=== PATIENT | male | born 1960 | race Caucasian/White ===

== ENCOUNTER 2016-11-22 23:17 | Emergency (ER) | payer OTHER ==
--- NOTE | 2016-11-22 23:32 | CPEKG ---
Heart Rate: 72 RR Interval: 833 P-R Interval: 140 QRSD Interval: 82 QT Interval: 396 QTC Interval: 434 P Ralston: 63 QRS Ralston: 30 T Wave Ralston: 18 EKG Severity - NORMAL ECG - EKG Impression: SINUS RHYTHM Electronically Signed By: Kaden Zavaleta 23-Nov-2016 02:15:22
[2016-11-22] MEDS ORDERED: NS 1,000 ML IV ONE (23:58)
--- NOTE | 2016-11-23 01:06 | EDPHY ---
H & P Stated Complaint: syncopal episode Time Seen by Provider: 11/22/16 23:41 HPI/ROS: Chief Complaint: Syncope HPI: 56-year-old male had a syncopal episode this morning. Patient states he has been feeling nauseated all day. States he went to the bathroom. Mom the toilet had a wave of nausea. He lowered himself to the ground and then had a witnessed syncopal event. His was there when this occurred. She states that he was unconscious for about 30 seconds. He did not fall or hit his head. He has not had any vomiting. No pain. No chest pain shortness of breath. No recent illness. No recent travel. No chest pain or palpitations. No family history of coronary disease or sudden cardiac . Otherwise has been in his normal state of health. ROS: 10 point Review of Systems is negative except as noted in the HPI. PMH: None Surgeries none Medications: None Allergies: None Social History: No smoking, quit 2 years ago, rare alcohol, occasional marijuana Family History: Father of renal cancer, no family history of coronary artery disease or sudden cardiac Physical Exam: Gen: Awake, Alert, No Distress HEENT: Nose: no rhinorrhea Eyes: PERRLA, EOMI Mouth: Dry mucosa Neck: Supple, no JVD Chest: nontender, lungs clear to auscultation Heart: S1, S2 normal, no murmur Abd: Soft, non-tender, no guarding Back: no CVA tenderness, no midline tenderness Ext: no edema, non-tender Skin: no rash Neuro: CN II-XII intact, Sensation grossly intact, Strength 5/5 in bilateral upper and lower extremities - Personal History Current Tetanus/Diphtheria Vaccine: No - Medical/Surgical History Hx Asthma: No Hx Chronic Respiratory Disease: No Hx Diabetes: No Hx Cardiac Disease: No Hx Renal Disease: No Hx Cirrhosis: No Hx Alcoholism: No Other PMH: Syncope - Social History Smoking Status: Former smoker Constitutional: Initial Vital Signs Temperature (C) 36.4 C 11/22/16 23:26 Heart Rate 74 11/22/16 23:26 Respiratory Rate 16 11/22/16 23:26 Blood Pressure 139/72 H 11/22/16 23:26 O2 Sat (%) 97 11/22/16 23:26 O2 Delivery Mode Room Air Allergies/Adverse Reactions: No Known Allergies Allergy (Unverified 11/22/16 23:29) Home Medications: Medication Instructions Recorded NK [No Known Home Meds] 11/22/16 Medical Decision Making - Diagnostics EKG Interpretation: ECG time 11:39 p.m. sinus rhythm with a rate of 72, normal axis, normal intervals, no acute ST or T-wave changes. Impression: Normal ECG. ED Course/Re-evaluation: 56-year-old male with a syncopal episode after a wave of nausea on the toilet. Patient does not have any risk factors for arrhythmia or coronary artery disease. He has had some nausea all day but no associated pain. Will check ECG and labs. IV fluids and antiemetics and reassess. Patient feels much better after IV fluids. ECG is normal. Troponin is negative. He is tolerating p.o.. Symptoms consistent with a vagal syncope. He has a completely benign examination. Will discharge with instructions to follow up with primary care physician, return for worsening. - Data Points Laboratory Results: Laboratory Results 11/22/16 01:00 11/22/16 11/22/16 01:00 01:00 WBC 7.48 10^3/uL 10^3/uL (3.80-9.50) RBC 4.96 10^6/uL 10^6/uL (4.40-6.38) Hgb 15.9 g/dL g/dL (13.7-17.5) Hct 47.2 % % (40.0-51.0) MCV 95.2 fL fL (81.5-99.8) MCH 32.1 pg pg (27.9-34.1) MCHC 33.7 g/dL g/dL (32.4-36.7) RDW 12.5 % % (11.5-15.2) Plt Count 167 10^3/uL 10^3/uL (150-400) MPV 10.5 fL fL (8.7-11.7) Neut % (Auto) 90.7 % H % (39.3-74.2) Lymph % (Auto) 4.7 % L % (15.0-45.0) Perkins % (Auto) 3.9 % L % (4.5-13.0) Eos % (Auto) 0.1 % L % (0.6-7.6) Baso % (Auto) 0.3 % % (0.3-1.7) Nucleat RBC Rel Count 0.0 % % (0.0-0.2) Absolute Neuts (auto) 6.79 10^3/uL H 10^3/uL (1.70-6.50) Absolute Lymphs (auto) 0.35 10^3/uL L 10^3/uL (1.00-3.00) Absolute Monos (auto) 0.29 10^3/uL L 10^3/uL (0.30-0.80) Absolute Eos (auto) 0.01 10^3/uL L 10^3/uL (0.03-0.40) Absolute Basos (auto) 0.02 10^3/uL 10^3/uL (0.02-0.10) Absolute Nucleated RBC 0.00 10^3/uL 10^3/uL (0-0.01) Immature Gran % 0.3 % % (0.0-1.1) Immature Gran # 0.02 10^3/uL 10^3/uL (0.00-0.10) Sodium Pending Potassium Pending Chloride Pending Carbon Dioxide Pending Anion Gap Pending BUN Pending Creatinine Pending Estimated GFR Pending Glucose Pending Calcium Pending Troponin I Pending Medications Given: Discontinued Medications Sodium Chloride (Ns) 1,000 mls @ 0 mls/hr IV ONCE ONE; Wide Open PRN Reason: Protocol Stop: 11/22/16 23:59 Last Admin: 11/23/16 00:07 Dose: 1,000 mls Departure - Departure Disposition: Home, Routine, Self-Care Clinical Impression: Vasovagal syncope Condition: Good Instructions: Syncope (ED) Additional Instructions: Follow up with your primary care physician in 2-3 days for further evaluation. Return to the emergency department for further episodes of fainting, chest pain , shortness of breath, uncontrolled nausea or vomiting, or any other concerns. Referrals: Azael Yanez MD [place] [place] - As per Instructions
[2016-11-23 01:11] LABS: % IMMATURE GRANULYOCYTES 0.3 % (0.0-1.1); ABSOLUTE IMMATURE GRANULOCYTES 0.02 10^3/uL (0.00-0.10); ADD DIFF? NO; ADD MORPH? NO; ADD SCAN? NO; ATYPICAL LYMPHOCYTE FLAG 0 (0-99); FRAGMENT RBC FLAG 0 (0-99); HEMATOCRIT 47.2 % (40.0-51.0); HEMOGLOBIN 15.9 g/dL (13.7-17.5); LEFT SHIFT FLG 0 (0-99); LIPEMIA HEMOLYSIS FLAG 80 (0-99); MEAN CELL HEMOGLOBIN 32.1 pg (27.9-34.1); MEAN CELL HEMOGLOBIN CONCENTR. 33.7 g/dL (32.4-36.7); MEAN CELL VOLUME 95.2 fL (81.5-99.8); MEAN PLATELET VOLUME 10.5 fL (8.7-11.7); PLATELET CLUMPS FLAG 0 (0-99); PLATELET COUNT 167 10^3/uL (150-400); RED BLOOD CELL COUNT 4.96 10^6/uL (4.40-6.38); RED CELL DISTRIBUTION WIDTH 12.5 % (11.5-15.2)
[2016-11-23 01:23] LABS: ANION GAP 11 mEq/L (8-16); CALCIUM 8.6 mg/dL (8.5-10.4); CARBON DIOXIDE 24 mEq/l (22-31); CHLORIDE 106 mEq/L (97-110); CREATININE 0.9 mg/dL (0.7-1.3); GLOMERULAR FILTRATION RATE > 60; GLUCOSE 122 mg/dL (70-100); POTASSIUM 4.4 mEq/L (3.5-5.2); SODIUM 141 mEq/L (134-144)
[2016-11-23 01:35] LABS: TROPONIN I < 0.012 ng/mL (0.000-0.034)
[2016-11-23 01:50] VITALS: BP 133/73; PULSE 70; RESP 18; TEMP 98.1; O2SAT 95
== END 2016-11-23 01:50 | disposition home or self-care (01) ==
LOC: EDUNIT#
DX: R55 Syncope and collapse (principal); E86.9 Volume depletion, unspecified; Z87.891 Personal history of nicotine dependence